=== PATIENT | female | born 1945 | race African-American/Black ===

== ENCOUNTER 2022-11-01 11:59 | Inpatient (IN) | payer MEDICARE ==
[~2022-11-01] VITALS: Ht 162.6 cm; Wt 52.6 kg
[~2022-11-01 11:59] MED LIST: AMLO5TAB4 PO; ASPI-986 PO; METO5AMP3 PO
[2022-11-01 15:13] LABS: BASOPHILS % 0.6 % (0.0-2.0); EOSINOPHILS % 0.1 % (0.0-5.0); HEMATOCRIT. 40.2 % (36.0-48.0); HEMOGLOBIN. 12.8 g/dL (12.0-16.0); LYMPHOCYTES % 18.6 % (20.0-50.0); MEAN CORPUSCULAR HEMOGLOBIN 22.3 pg (28.0-32.0); MEAN CORPUSCULAR VOLUME 70.1 fL (81.0-99.0); MEAN PLATELET VOLUME 10.2 fl (7.4-10.4); MONOCYTES % 10.7 % (2.0-8.0); PLATELET 191 x1000/uL (130-400); RED BLOOD CELL COUNT 5.73 mill/uL (4.2-5.4); RED CELL DISTRIBUTION WIDTH 16.3 % (11.6-14.6)
[2022-11-01 15:27] LABS: CHLORIDE 95 mEq/L (98-107)
[2022-11-01 15:38] LABS: CREATINE KINASE 105 IU/L (26-192)
[2022-11-01] MEDS ORDERED: ACETAMINOPHEN 325MG TABLET PO PRN ×2 (18:45)
[2022-11-01] MEDS ORDERED: IPRATROPIUM/ALBUTEROL 0.5-3(2.5)MG/3ML NEB NEB PRN (18:45)
[2022-11-01] MEDS ORDERED: DOCUSATE SODIUM 100MG CAPSULE PO PRN (18:45)
[2022-11-01] MEDS ORDERED: CLONIDINE 0.1MG TABLET PO PRN (18:45)
[2022-11-01] MEDS ORDERED: NITROGLYCERIN 0.4MG TABLET SL SL PRN (18:45)
[2022-11-01] MEDS ORDERED: NA PHOS,M-B/NA PHOS,DI-BA ENEMA 118ML PR PRN (18:45)
[2022-11-01] MEDS ORDERED: ZOLPIDEM TARTRATE 5MG TABLET PO PRN (18:45)
[2022-11-01] MEDS ORDERED: ONDANSETRON HCL 4MG/2ML INJ IV PRN (18:45)
[2022-11-01] MEDS ORDERED: GUAIFENESIN 200MG/10ML SUGAR FREE UDC PO PRN (18:45)
[2022-11-01] MEDS ORDERED: KETOROLAC 15MG/ML VIAL IV PRN (18:45)
[2022-11-01] MEDS ORDERED: MAGNESIUM/ALUMINUM HYDROXIDE/SIMETHICONE 30ML UDC PO PRN (18:45)
[2022-11-01 19:32] LABS: T4 FREE 1.42 ng/dL (0.76-1.46)
[2022-11-01 19:54] LABS: VITAMIN B12 SERUM 603 pg/mL (211-911)
[2022-11-01] MEDS ORDERED: POTASSIUM CHLORIDE 20MEQ/PACKET PO NR (20:45)
[2022-11-01] MEDS: ENOXAPARIN 40MG/0.4ML SYR SUBCUT SCH (21:07)
[2022-11-01] MEDS: FAMOTIDINE 20MG TABLET PO SCH (21:07)
[2022-11-02] VITALS (7 sets, daily range): BP systolic 108–148; BP diastolic 64–100
[2022-11-02 00:11] LABS: CREATINE KINASE 82 IU/L (26-192); CREATINE KINASE MB FRACTION < 1.0 ng/mL (0.5-3.6)
[2022-11-02] MEDS: ASPIRIN 325MG EC TABLET PO SCH (08:37)
[2022-11-02] MEDS: FAMOTIDINE 20MG TABLET PO SCH ×2 (08:37→20:29)
[2022-11-02 09:04] LABS: HEMOGLOBIN. 11.7 g/dL (12.0-16.0); MEAN CORPUSCULAR HEMOGLOBIN 22.4 pg (28.0-32.0); MEAN CORPUSCULAR VOLUME 68.8 fL (81.0-99.0); MEAN PLATELET VOLUME 10.1 fl (7.4-10.4); PLATELET 175 x1000/uL (130-400); RED BLOOD CELL COUNT 5.23 mill/uL (4.2-5.4); RED CELL DISTRIBUTION WIDTH 16.1 % (11.6-14.6)
[2022-11-02 09:15] LABS: CHLORIDE 98 mEq/L (98-107)
[2022-11-02 09:28] LABS: CREATINE KINASE 83 IU/L (26-192); CREATINE KINASE MB FRACTION < 1.0 ng/mL (0.5-3.6); PHOSPHORUS 3.3 mg/dL (2.5-4.9)
[2022-11-02 17:59] LABS: PLATELET ESTIMATE NORMAL
[2022-11-02] MEDS: ENOXAPARIN 40MG/0.4ML SYR SUBCUT SCH (20:29)
[2022-11-02] MEDS ORDERED: ATORVASTATIN CALCIUM 40MG TABLET PO SCH (21:00)
[2022-11-02] MEDS ORDERED: POTASSIUM CHLORIDE 20MEQ TABLET SR PO NR (21:11)
[2022-11-03] VITALS (7 sets, daily range): BP systolic 107–135; BP diastolic 68–89
[2022-11-03] MEDS: ASPIRIN 325MG EC TABLET PO SCH (09:21)
[2022-11-03] MEDS: FAMOTIDINE 20MG TABLET PO SCH (09:21)
[2022-11-03] MEDS ORDERED: LIP40 PO (11:44)
[2022-11-03] MEDS ORDERED: POTASSIUM CHLORIDE 20MEQ/PACKET PO NR (12:00)
[2022-11-03 16:09] LABS: CHLORIDE 100 mEq/L (98-107)
== END 2022-11-03 19:30 | disposition home health service (06) | DRG 312 ==
LOC: ER 11:59 → 5EST 17:06 → EDBEDREQTM 17:09 → EDBEDREQ 17:09
PROVIDERS: ADMIT Internal Medicine; ATTEND Internal Medicine
DX: R55 Syncope and collapse (principal); E87.1 Hypo-osmolality and hyponatremia; E78.5 Hyperlipidemia, unspecified; Z20.822 Contact with and (suspected) exposure to COVID-19; E87.6 Hypokalemia; I10 Essential (primary) hypertension; J11.1 Influenza due to unidentified influenza virus with other respiratory manifestations; R73.9 Hyperglycemia, unspecified; Z79.82 Long term (current) use of aspirin; Z86.73 Personal history of transient ischemic attack (TIA), and cerebral infarction without residual deficits; Z90.710 Acquired absence of both cervix and uterus; E78.00 Pure hypercholesterolemia, unspecified
CPT/HCPCS: 36415; 71045; 80048; 80053; 80061; 82550; 82553; 82607; 82746; 82962; 83036; 83540; 83550; 83605; 83735; 83880; 84100; 84145; 84439; 84443; 84484; 85025; 87426; 87804; 93005; 93306; 93970; 97162; 97166; 99285; C9803; J1650

== ENCOUNTER 2025-08-10 21:16 | Emergency (ER) | payer MEDICARE ==
[~2025-08-10] VITALS: Ht 162.6 cm; Wt 61.0 kg
[~2025-08-10 21:16] MED LIST changes: +AMLO10TA80 MT; -AMLO5TAB4 PO; +LIP40 PO; +METO-411 MT; -METO5AMP3 PO; +TELM80TA8 MT
[2025-08-10 21:21] VITALS: O2SAT 98
[2025-08-10 23:32] LABS: BASOPHILS % 0.7 % (0.0-2.0); EOSINOPHILS % 2.2 % (0.0-5.0); HEMATOCRIT. 32.4 % (36.0-48.0); HEMOGLOBIN. 10.1 g/dL (12.0-16.0); LYMPHOCYTES % 21.3 % (20.0-50.0); MEAN PLATELET VOLUME 9.2 fl (7.4-10.4); MONOCYTES % 10.0 % (2.0-8.0); NEUTROPHILS % 65.8 % (40.0-76.0); PLATELET 179 x1000/uL (130-400); RED BLOOD CELL COUNT 4.54 mill/uL (4.2-5.4); RED CELL DISTRIBUTION WIDTH 16.0 % (11.6-14.6)
[2025-08-10 23:46] LABS: CREATININE 1.1 mg/dL (0.6-1.0); UREA NITROGEN BLOOD 17 mg/dL (9-23)
[2025-08-10 23:47] LABS: TROPONIN I HIGH SENSITIVITY 8 ng/L (3.0-34)
[2025-08-10 23:48] LABS: ASPARTATE AMINOTRANSFERASE 12 IU/L (<34); BILIRUBIN DIRECT 0.2 mg/dL (<=3.0); BILIRUBIN TOTAL 0.8 mg/dL (0.1-1.0); PROTEIN TOTAL 6.4 g/dL (6.0-8.3)
[2025-08-11 00:22] VITALS: BP 141/77; PULSE 69; RESP 20; TEMP 37; O2SAT 98
== END 2025-08-11 00:28 | disposition home or self-care (01) ==
LOC: ER 21:16
DX: R55 Syncope and collapse (principal); I10 Essential (primary) hypertension; I46.9 Cardiac arrest, cause unspecified; F10.90 Alcohol use, unspecified, uncomplicated; Z79.82 Long term (current) use of aspirin; Z79.899 Other long term (current) drug therapy; Z86.73 Personal history of transient ischemic attack (TIA), and cerebral infarction without residual deficits; Z90.710 Acquired absence of both cervix and uterus; Y90.9 Presence of alcohol in blood, level not specified
CPT/HCPCS: 36415; 71045; 80048; 80076; 84484; 85025; 99284; A4606